=== PATIENT | male | born 2000 | race Two or more races ===

== ENCOUNTER 2024-03-26 12:28 | Emergency (ER) | payer MEDICAID, OTHER ==
[~2024-03-26] VITALS: Ht 162.6 cm; Wt 75.1 kg
[2024-03-26 12:30] VITALS: BP 145/82; PULSE 98; RESP 20; O2SAT 97
== END 2024-03-26 13:14 | disposition left against medical advice (07) ==
LOC: ER 12:28
DX: S09.8XXA Other specified injuries of head, initial encounter (principal); Z53.21 Procedure and treatment not carried out due to patient leaving prior to being seen by health care provider; W22.8XXA Striking against or struck by other objects, initial encounter; Y93.89 Activity, other specified; Y92.89 Other specified places as the place of occurrence of the external cause; Y99.8 Other external cause status